=== PATIENT | female | born 1990 | race Caucasian/White ===

== ENCOUNTER → 2018-03-09 | Outpatient (CLI) | payer MEDICAID, BC ==
[2018-03-09 16:29] LABS: HCT 40.2 % (34.0-46.0); MCH 30.9 pg (25.0-35.0); MCHC 34.9 g/dL (31.0-37.0); MCV 88.7 fL (80.0-100.0); Mean Platelet Volume 6.6; Platelet Count 249 k/uL (150-450); RBC 4.53 m/uL (3.80-5.40); RDW 12.6 % (11.5-15.5); WBC 9.1 k/uL (3.8-10.6)
[2018-03-09 16:41] LABS: Glucose 63 mg/dL (74-99)
[2018-03-10 05:22] LABS: HIV 1 AB Non-Reactive (Non-Reactive); HIV AB P24 Non-Reactive (Non-Reactive); HIV P24 AG Non-Reactive (Non-Reactive)
[2018-03-10 05:23] LABS: Toxoplasma Antibody (IgG) <3.0 IU/mL (<7.2); Toxoplasma Antibody (IgM) <3.0 AU/mL (<8.0)
--- NOTE | 2018-03-10 08:23 | US ---
EXAMINATION TYPE: Transabdominal DATE OF EXAM: 10/13/17 COMPARISON: NONE CLINICAL HISTORY: Z36 Confirm Dates. EXAM PERFORMED: Transabdominal (TA) EXAM MEASUREMENTS: GESTATIONAL AGE / DATING Physician Established: Not yet established Dates by LMP: (10 weeks/5 days) EDC: 09/30/2018 Dates by First Scan: No previous. This is first scan Dates by Current Scan for: (10 weeks/3 days) EDC: 10/02/2018 MATERNAL ANATOMY Uterus: 14.3 x 8.8 x 5.9cm Right Ovary: 3.1 x 2.9 x 1.9cm Left Ovary: 3.5 x 3.1 x 2.1cm Post CDS / Adnexa: wnl Presence of free fluid: no Presence of corpus luteal cyst: not identified, but may be in right ovary Presence of subchorionic bleed: no GESTATION / SURVEY CRL: 3.5cm (10 weeks/3 days) Yolk Sac (normal less than 6mm): not seen Heart Rate: 178 bpm Rhythm: Normal IUP: single Date of LMP: UNSURE Beta HcG (if available): NA Single, live IUP, 10 weeks/3 days, EDC: 10/02/2018, HR 178bpm. IMPRESSION: 1. Single intrauterine gestation estimated at 10 weeks 3 days gestation based on the crown-rump lengt h. Cardiac activity measures 178 bpm.
== END | disposition home or self-care (01) ==
LOC: RADUSWWP 15:41
PROVIDERS: ATTEND Obstetrics & Gynecology
DX: O26.811 Pregnancy related exhaustion and fatigue, first trimester (principal); Z3A.10 10 weeks gestation of pregnancy
CPT/HCPCS: 36415; 76801; 82565; 82947; 85027; 86762; 86777; 86778; 86780; 86850; 86900; 86901; 87340; 87390

== ENCOUNTER → 2018-05-03 | Outpatient (CLI) | payer MEDICAID, BC ==
--- NOTE | 2018-05-04 11:36 | US ---
EXAMINATION TYPE: US OB anatomy transabd DATE OF EXAM: 05/03/2018 COMPARISON: NONE HISTORY: O36.62X0 Maternal care for excessive growth, LGA TECHNIQUE: Transabdominal (TA) EXAM MEASUREMENTS: GESTATIONAL AGE / DATING Physician Established: (18 weeks/4 days) EDC: 09/30/18 Dates by LMP: (18 weeks/4 days) EDC: 09/30/18 Dates by First Scan: (18 weeks/2 days) EDC: 10/02/18 Dates by Current Scan for: (18 weeks/1 days) EDC: 10/03/18 SURVEY IUP: Single PLACENTA: Posterior PREVIA: Low Lying NICOLA: 11.0 cm Normal CERVICAL LENGTH (transabdominal: norm > 3.0cm): 3.6 cm BIOMETRY PRESENTATION: Vertex LIE: Transverse lie with head maternal LT BPD: 3.8 cm 17 weeks / 5 days HC: 15.0 cm 18 weeks / 1 days AC: 12.6 cm 18 weeks / 2 days FL: 2.6 cm 18 weeks / 0 days ESTIMATED WEIGHT IN GRAMS: 221 grams ESTIMATED WEIGHT IN LBS/OZ: 0 lbs. 8 oz. WEIGHT PERCENTAGE BASED ON ESTABLISHED DATE: 18 % HC/AC: 1.19 Normal FL/AC: 21% Normal HEART RATE: 143 bpm RHYTHM: Normal ANATOMY SEEN (within normal limits): * Lateral Vent (< 1 cm) 0.6 cm * Cisterna Magna (< 1.1 cm) 0.4 cm * Nuchal Fold (< 0.6 cm) 0.4cm * Cerebellum (varies with age) 1.7 cm Choroid Plexus (bilateral) Midline Falx Cavus Septi Pellucidi Four Chamber Heart Outflow tracts: LVOT/RVOT Stomach Situs Nose / Lips Diaphragm Kidneys (bilateral) Bladder Cord Insert Three Vessel Cord Longitudinal Spine Transverse Spine Arms (bilateral) Legs (bilateral) IMPRESSION: Single live IUP with a sonographic age of 18wks/1day with NICOLE of 10/03/18, concordant with menstrual age. Amniotic fluid and a heart rate are within normal limits. Anatomy as seen above.
[2018-05-05 10:50] LABS: Alpha Fetoprotein (M.O.M) 1.13; B-HCG (M.O.M.) 0.43; Gestational Age (days) 2; Human Chorionic Gonadotropin 11.1 IU/mL; Inhibin A (M.O.M.) 0.61; Maternal Age at EDD (Yrs) 28; Smoker No; Unconjugated Estriol (M.O.M.) 0.87
== END | disposition home or self-care (01) ==
LOC: RADUSWWP 16:24
PROVIDERS: ATTEND Obstetrics & Gynecology
DX: O36.62X0 Maternal care for excessive fetal growth, second trimester, not applicable or unspecified (principal); Z3A.00 Weeks of gestation of pregnancy not specified
CPT/HCPCS: 76811; 82105; 82677; 84702; 86336

== ENCOUNTER → 2018-06-16 | Outpatient (CLI) | payer MEDICAID, BC ==
[2018-06-16 15:47] LABS: HCT 39.7 % (34.0-46.0); HGB 13.3 gm/dL (11.4-16.0); MCH 30.9 pg (25.0-35.0); MCHC 33.6 g/dL (31.0-37.0); MCV 92.1 fL (80.0-100.0); Mean Platelet Volume 6.6; Platelet Count 321 k/uL (150-450); RBC 4.31 m/uL (3.80-5.40); RDW 13.4 % (11.5-15.5); WBC 14.5 k/uL (3.8-10.6)
== END | disposition home or self-care (01) ==
LOC: LABWHC1 14:02
PROVIDERS: ATTEND Obstetrics & Gynecology
DX: Z34.82 Encounter for supervision of other normal pregnancy, second trimester (principal)
CPT/HCPCS: 36415; 82950; 85027

== ENCOUNTER → 2018-08-05 | Outpatient (CLI) | payer MEDICAID ==
--- NOTE | 2018-08-06 07:31 | US ---
EXAMINATION TYPE: US OB >= 14 wk fetus DATE OF EXAM: 08/05/2018 COMPARISON: US 05/03/2018 HISTORY: O44.43 LOW LYING PLACENTA,O36.63X0 LARGE FOR DATES TECHNIQUE: Transabdominal (TA) EXAM MEASUREMENTS: GESTATIONAL AGE / DATING Physician Established: (32 weeks/0 days) EDC: 09/30/2018 Dates by LMP: (32 weeks/0 days) EDC: 09/30/2018 Dates by First Scan: (31 weeks/5 days) EDC: 10/02/2018 Dates by Current Scan for: (32 weeks/0 days) EDC: 09/30/2018 SURVEY IUP: Single PLACENTA: Posterior PREVIA: Low Lying NICOLA: 12.2 cm Normal CERVICAL LENGTH (transabdominal: norm > 3.0cm): 3.5 cm BIOMETRY PRESENTATION: Breech LIE: Longitudinal BPD: 8.0 cm 32 weeks / 1 days HC: 29.7 cm 33 weeks / 0 days AC: 26.3 cm 30 weeks / 4 days FL: 6.2 cm 31 weeks / 6 days ESTIMATED WEIGHT IN GRAMS: 1748 grams ESTIMATED WEIGHT IN LBS/OZ: 3 lbs. 14 oz. WEIGHT PERCENTAGE BASED ON ESTABLISHED DATE: 20 % HC/AC: 1.13 Normal FL/AC: 24% Normal HEART RATE: 136 bpm RHYTHM: Normal ANATOMY SEEN (within normal limits): Stomach Situs Diaphragm Kidneys (bilateral) Bladder Three Vessel Cord ANATOMY SEEN (does not appear within normal limits): ANATOMY NOT SEEN due to crowding: * Lateral Vent (< 1 cm) cm * Cisterna Magna (< 1.1 cm) cm * Nuchal Fold (< 0.6 cm) cm * Cerebellum (varies with age) cm Choroid Plexus (bilateral) Midline Falx Cavus Septi Pellucidi Four Chamber Heart Outflow tracts: LVOT/RVOT Nose / Lips Cord Insert Longitudinal Spine Transverse Spine Arms (bilateral) Legs (bilateral) IMPRESSION: Viable IUP, measurements consistent with dates. Low lying placenta measuring 2.2 cm from cervix.
== END | disposition home or self-care (01) ==
LOC: RADUSWWP 16:14
PROVIDERS: ATTEND Obstetrics & Gynecology
DX: O44.43 Low lying placenta NOS or without hemorrhage, third trimester (principal); Z3A.32 32 weeks gestation of pregnancy
CPT/HCPCS: 76805

== ENCOUNTER → 2018-08-10 | Outpatient (CLI) | payer MEDICAID ==
--- NOTE | 2018-08-17 13:10 | ECHOF ---
Referral Reason:R00.0 Tachycardia, unspecified MEASUREMENTS -------- HEIGHT: 165.1 cm WEIGHT: 63.5 kg BP: RVIDd: 2.5 cm (< 3.3) IVSd: 0.9 cm (0.6 - 1.1) LVIDd: 4.2 cm (3.9 - 5.3) LVPWd: 0.9 cm (0.6 - 1.1) IVSs: 1.3 cm LVIDs: 2.6 cm LVPWs: 1.7 cm Ao Diam: 2.4 cm (2.0 - 3.7) AV Cusp: 2.0 cm (1.5 - 2.6) LA Diam: 2.3 cm (2.7 - 3.8) MV EXCURSION: 15.184 mm (> 18.000) MV EF SLOPE: 138 mm/s (70 - 150) EPSS: 0.6 cm MV E Daniel: 0.79 m/s MV DecT: 205 ms MV A Daniel: 0.58 m/s MV E/A Ratio: 1.36 RAP: 5.00 mmHg RVSP: 34.50 mmHg FINDINGS -------- Sinus rhythm. This was a technically good study. The left ventricular size is normal. Left ventricular wall thickness is normal. Overall left vent ricular systolic function is normal with, an EF between 55 - 60 %. The right ventricle is normal in size. The left atrium is normal in size. The right atrium is normal in size. The aortic valve is trileaflet, and appears structurally normal. No aortic stenosis or regurgitation. There is trace mitral regurgitation. Trace tricuspid regurgitation present. The right ventricular systolic pressure, as measured by Dopp ler, is 34.50mmHg. Pulmonic valve appears structurally normal. The aortic root size is normal. Normal inferior vena cava with normal inspiratory collapse consistent with estimated right atrial pre ssure of 5 mmHg. The pericardium is normal. CONCLUSIONS -------- 1. Sinus rhythm. 2. This was a technically good study. 3. The left ventricular size is normal. 4. Left ventricular wall thickness is normal. 5. Overall left ventricular systolic function is normal with, an EF between 55 - 60 %. 6. The right ventricle is normal in size. 7. The left atrium is normal in size. 8. The right atrium is normal in size. 9. The aortic valve is trileaflet, and appears structurally normal. No aortic stenosis or regurgitati on. 10. There is trace mitral regurgitation. 11. Trace tricuspid regurgitation present. 12. The right ventricular systolic pressure, as measured by Doppler, is 34.50mmHg. 13. Pulmonic valve appears structurally normal. 14. The aortic root size is normal. 15. Normal inferior vena cava with normal inspiratory collapse consistent with estimated right atrial pressure of 5 mmHg. 16. The pericardium is normal. LEGISLATIVE CORRESPONDENT: Jill Cronin RDCS
== END | disposition home or self-care (01) ==
LOC: RADECHMAIN 13:15
PROVIDERS: ATTEND Internal Medicine Cardiovascular Disease
DX: R00.0 Tachycardia, unspecified (principal)
CPT/HCPCS: 93225; 93226; 93306

== ENCOUNTER → 2018-08-27 | Outpatient (CLI) | payer MEDICAID ==
--- NOTE | 2018-08-28 11:19 | US ---
EXAMINATION TYPE: US OB >= 14 wk fetus DATE OF EXAM: 08/27/2018 COMPARISON: US 2019 CLINICAL HISTORY: O44.43 Low lying placentaLow lying placenta TECHNIQUE: Transabdominal (TA) GESTATIONAL AGE / DATING Physician Established: (35 weeks/1 days) EDC: 09/30/2018 Dates by LMP: (35 weeks/1 days) EDC: 09/30/2018 Dates by First Scan: (34 weeks/6 days) EDC: 10/02/2018 Dates by Current Scan: (34 weeks/4 days) EDC: 10/04/2018 SURVEY IUP: Single PLACENTA: Posterior PREVIA: No Previa: limited evaluation for low lying placenta, unable to visualize tip of placenta in relation to internal cervical os due to posterior shadowing from vertex head NICOLA: 12.9 cm Normal CERVICAL LENGTH (transabdominal: norm > 3.0cm): 3.9 cm BIOMETRY PRESENTATION: Vertex BPD: 8.6 cm 34 weeks / 5 days HC: 31.3 cm 35 weeks / 1 days AC: 29.4 cm 34 weeks / 3 days FL: 6.7 cm 34 weeks / 4 days ESTIMATED WEIGHT IN GRAMS: 2324 grams ESTIMATED WEIGHT IN LBS/OZ: 5 lbs. 2 oz. WEIGHT PERCENTAGE BASED ON ESTABLISHED DATES: 18% HC/AC: 1.06 Normal FL/AC: 23% Normal HEART RATE: 136 bpm RHYTHM: Normal IMPRESSION: Viable single IUP measuring 34 weeks 4 days with a heart rate of 136bpm and an estimated delivery elmira e of 10/04/2018.
== END ==
LOC: RADUSWWP 16:24
PROVIDERS: ATTEND Obstetrics & Gynecology
DX: O44.43 Low lying placenta NOS or without hemorrhage, third trimester (principal); Z3A.34 34 weeks gestation of pregnancy
CPT/HCPCS: 76805

== ENCOUNTER 2018-09-30 06:03 | Inpatient (IN) | payer MEDICAID ==
--- NOTE | 2018-09-29 19:31 | P.HPOB ---
History of Present Illness H&P Date: 09/29/18 Chief Complaint: Induction of labor This is a 28-year-old female 2 para 1 with an estimated date of confinement of 09/30/2018, estimated gestational age of 40-0/7 weeks, who presents to labor and delivery for induction of labor. She admits to good movement. She has been feeling irregular contractions. course has been essentially uncomplicated other than low-lying placenta. She was also seen by cardiology secondary to maternal tachycardia. No intervention was necessary. labs: GC/chlamydia-negative Hepatitis B surface antigen-negative on reactive Rubella-immune Syphilis antibody-negative nonreactive HIV-nonreactive Toxoplasma screen-negative Random glucose-63 Hemoglobin-14 Blood type-O- Antibody screen-negative, RhoGAM was not given due to her is Rh-. Quad screen-negative One hour Glucola-113 Group B streptococcus-negative, but history of positive GBS last Obstetrical history: . History of 1 vaginal delivery at term. Gynecologic history: No history of sexual transmitted diseases. Social history: She is . She works as an RN. Review of Systems Constitutional: Denies chills, Denies fever Eyes: denies blurred vision, denies pain Ears, nose, mouth and throat: Denies headache, Denies sore throat Cardiovascular: Denies chest pain, Denies shortness of breath Respiratory: Denies cough Gastrointestinal: Reports abdominal pain (Irregular contractions) Genitourinary: Reports pelvic pain, Reports Musculoskeletal: Reports low back pain Integumentary: Denies pruritus, Denies rash Neurological: Denies numbness, Denies weakness Psychiatric: Denies anxiety, Denies depression Past Medical History Past Medical History: No Reported History Past Surgical History: No Surgical Hx Reported Past Psychological History: No Psychological Hx Reported Past Alcohol Use History: None Reported Past Drug Use History: None Reported - Past Family History Mother Family Medical History: Hypertension Medications and Allergies Home Medications Medication Instructions Recorded Confirmed Type Vco-Bxsx-Qitfg Acid 1 cap PO DAILY 09/29/18 09/29/18 History [-U Capsule (formulary)] Allergies Allergy/AdvReac Type Severity Reaction Status Date / Time No Known Allergies Allergy Verified 09/29/18 19:27 Exam Osteopathic Statement: *. No significant issues noted on an osteopathic structural exam other than those noted in the History and Physical/Consult. HEENT: Within normal limits Heart: Regular rate and rhythm Lungs: Clear to auscultation bilaterally Abdomen: Cervix: 2.5 cm/60%/0 station heart tones: 150s Extremities: Negative Homans Assessment and Plan (1) 40 weeks gestation of Status: Acute Code(s): Z3A.40 - 40 WEEKS GESTATION OF SNOMED Code(s): 70816381 (2) Group B Streptococcus carrier, +RV culture, currently Status: Acute Code(s): O99.820 - STREPTOCOCCUS B CARRIER STATE COMPLICATING SNOMED Code(s): 6349628202565 Plan: Proceed with oxytocin induction of labor. Will give antibiotic prophylaxis secondary to history of positive group B streptococcus. Epidural anesthesia if desired. Expectant management.
[2018-09-30] MEDS ORDERED: AMPICILLIN 2,000 MG in SODIUM CHLORIDE 0.9% 100 ML IVPB STA (06:20)
[2018-09-30] MEDS ORDERED: LACTATED RINGERS 1,000 ML IV SCH (06:20)
[2018-09-30] MEDS ORDERED: CARBOPROST TROMETHAMINE 250 MCG/ML 1 ML AMP IM PRN (06:20)
[2018-09-30] MEDS ORDERED: OXYTOCIN 10 UNIT/ML 1 ML VIAL IM PRN (06:20)
[2018-09-30] MEDS ORDERED: METHYLERGONOVINE 0.2 MG/ML 1 ML AMP IM PRN (06:20)
[2018-09-30] MEDS ORDERED: LIDOCAINE 1% 20 ML VIAL (10MG/ML) FOR IV START INTRADERMA PRN (06:20)
[2018-09-30] MEDS ORDERED: LIDOCAINE 0.5% (PF) 5 MG/ML (50 ML SDV) SQ PRN (06:20)
[2018-09-30] MEDS ORDERED: TERBUTALINE 1 MG/ML VIAL SQ PRN (06:20)
[2018-09-30] MEDS ORDERED: OXYTOCIN 30 UNITS/500 ML NS 30 UNIT in SALINE 1 500ML.BAG IV SCH (06:20)
[2018-09-30 06:26] VITALS: BMI 23.1
[2018-09-30 06:31] LABS: Basophils # (A) 0.1 k/uL (0-0.2); Basophils % (A) 1 %; Eosinophils # (A) 0.1 k/uL (0-0.7); Eosinophils % (A) 1 %; HCT 37.4 % (34.0-46.0); HGB 11.8 gm/dL (11.4-16.0); Lymphocytes # (A) 2.6 k/uL (1.0-4.8); Lymphocytes % (A) 27 %; MCH 25.3 pg (25.0-35.0); MCHC 31.6 g/dL (31.0-37.0); MCV 80.1 fL (80.0-100.0); Mean Platelet Volume 7.6; Monocytes # (A) 0.6 k/uL (0-1.0); Monocytes % (A) 6 %; Neutrophils # (A) 6.1 k/uL (1.3-7.7); Neutrophils % (A) 64 %; Platelet Count 283 k/uL (150-450); Poikilocytosis Slight; RBC 4.67 m/uL (3.80-5.40); RDW 15.5 % (11.5-15.5); WBC 9.6 k/uL (3.8-10.6)
[2018-09-30] MEDS ORDERED: AMPICILLIN 1,000 MG in SODIUM CHLORIDE 0.9% 50 ML IVPB SCH (11:00)
[2018-09-30] MEDS ORDERED: ROPIVACAINE 100 MG, fentaNYL (PF) 200 MCG in SODIUM CHLORIDE 0.9% 76 ML EPIDURAL ONE (12:20)
[2018-09-30] MEDS ORDERED: OXYTOCIN 20 UNITS/1000 ML NS 1,000 ML IV SCH (14:57)
[2018-09-30] MEDS ORDERED: BENZOCAINE/MENTHOL SPRAY 1 GM/SPRAY AEROSOL TOPICAL PRN (14:57)
[2018-09-30] MEDS ORDERED: ZOLPIDEM 5 MG TAB PO PRN (14:57)
[2018-09-30] MEDS ORDERED: WITCH HAZEL 1 EACH MED..PAD TOPICAL PRN (14:57)
[2018-09-30] MEDS ORDERED: diphenhydrAMINE 50 MG CAP PO PRN (14:57)
[2018-09-30] MEDS ORDERED: diphenhydrAMINE 25 MG CAP PO PRN (14:57)
[2018-09-30] MEDS ORDERED: SIMETHICONE 80 MG CHEWABLE PO PRN (14:57)
[2018-09-30] MEDS ORDERED: diphenhydrAMINE 50 MG/ML 1 ML VIAL IVP PRN ×2 (14:57)
[2018-09-30] MEDS ORDERED: HYDROCORTISONE 2.5% RECTAL CREAM 30 GM TUBE RECTAL PRN (14:57)
[2018-09-30] MEDS ORDERED: LANOLIN CREAM 5 GM TUBE TOPICAL PRN (14:57)
--- NOTE | 2018-09-30 17:22 | P.PROBDLV ---
Vaginal Delivery Note - . Vaginal Delivery Note: The patient progressed to complete dilation after oxytocin induction of labor and artificial rupture membranes with clear fluid noted. She did receive epidural anesthesia. Once reaching complete dilation, she began pushing. Infant's head came to a crown. With one further push, the infant's head delivered across the perineum followed by the anterior shoulder. Nose and mouth were bulb suctioned at the perineum. With one further push, the remainder the infant easily delivered and was placed on mother's abdomen. Brisk cry was noted immediately. Cord was allowed to stop pulsating before clamping and cutting. A viable female is noted with scores of 9 at 1 minute and 9 at 5 minutes and weight of 6 lbs. 12 oz. Cord blood was obtained secondary to Rh- status. Placenta delivered shortly thereafter, intact, with a three-vessel cord. Uterus contracted well after oxytocin was given and uterine massage was carried out. Inspection of the perineum revealed no perineal lacerations. Estimated blood loss is approximately 150 mL. Both mother and infant are in stable condition.
[2018-09-30] MEDS: IBUPROFEN 600 MG TAB PO PRN ×2 (17:23→23:17)
[2018-09-30] MEDS: SENNOSIDES-DOCUSATE SODIUM 1 EACH TAB PO SCH (19:37)
[2018-09-30] MEDS: ACETAMINOPHEN TAB 325 MG TAB PO PRN (21:44)
[2018-10-01] MEDS: ACETAMINOPHEN TAB 325 MG TAB PO PRN ×2 (04:25→10:43)
--- NOTE | 2018-10-01 05:10 | P.DS ---
Providers Date of admission: 09/30/18 06:03 Expected date of discharge: 10/01/18 Attending physician: Marva Fonseca Primary care physician: Stated None - Discharge Diagnosis(es) (1) 40 weeks gestation of Current Visit: No Status: Acute (2) Group B Streptococcus carrier, +RV culture, currently Current Visit: No Status: Acute Hospital Course: This is a 28-year-old female 2 para 1 at 40-0/7 weeks who presented for induction of labor. She underwent oxytocin induction of labor and delivered vaginally a viable female infant with scores of 9 at 1 minute and 9 at 5 minutes and weight of 6 lbs. 12 oz. Her course has been essentially uncomplicated. Lochia is decreasing. She is working on breast- feeding. Pain is fairly well controlled. Vital signs are stable. Abdomen is soft with fundus firm and nontender. Extremities show negative Homans. Impression is status post vaginal delivery day #1. Plan is to discharge home today. Routine instructions are given. She is advised to follow-up in the office in 6 weeks for a check. She will be given a prescription for ibuprofen and a breast pump. She is advised to call the office if she has any further questions or concerns prior to her appointment time. Procedures: Oxytocin induction of labor Spontaneous vaginal delivery of a viable female infant on 09/30/2018 Patient Condition at Discharge: Stable Plan - Discharge Summary New Discharge Prescriptions: New Ibuprofen [Motrin] 600 mg PO Q6HR PRN #60 tab PRN Reason: Mild Pain Or Fever >= 100.5 Continue Nzi-Uqhy-Ompjk Acid [-U Capsule (formulary)] 1 cap PO DAILY Discharge Medication List Hwz-Icad-Rbkch Acid [-U Capsule (formulary)] 1 cap PO DAILY 09/29/18 [History] Ibuprofen [Motrin] 600 mg PO Q6HR PRN #60 tab 10/01/18 [Rx] Follow up Appointment(s)/Referral(s): Marva Fonseca DO [Doctor of Osteopathic Medicine] - 1 Week Activity/Diet/Wound Care/Special Instructions: Instructions 1. Do not begin any exercise program for 3 weeks. 2. Do not resume sexual relations for 3 weeks or longer if uncomfortable. 3. You may take tub baths or showers at any time. 4. You may use tampons if desired after 3 weeks. 5. Keep the area of episiotomy (stitches) clean and dry. 6. If you are not nursing, wear a good fitting, supportive bra during the day and limit fluid intake for at least 1 week to prevent breast engorgement. 7. Call the office, [phone], within the next week to make appointment for your 6 week checkup if it has not already been made. 8. Report any of the following occurrences to the doctor promptly: a. Heavy, excessive bleeding b. Chills, fever c. Burning or frequency of urination d. Pain or redness and breasts if nursing e. Increasing pain or swelling in episiotomy (stitches). In addition to the above instructions, the following additional should be followed: 1. No heavy lifting or straining (exercising) until after 6 week checkup. 2. Keep abdominal incision clean and dry: You may wear a dressing if more comfortable. 3. Make office appointment for 10 days after going home or as instructed by her doctor. Discharge Disposition: HOME SELF-CARE
[2018-10-01] MEDS: IBUPROFEN 600 MG TAB PO PRN ×2 (06:12→12:43)
[2018-10-01 06:56] LABS: Basophils # (A) 0.1 k/uL (0-0.2); Basophils % (A) 1 %; Eosinophils # (A) 0.2 k/uL (0-0.7); Eosinophils % (A) 1 %; HCT 34.8 % (34.0-46.0); HGB 11.3 gm/dL (11.4-16.0); Hypochromasia Slight; Lymphocytes # (A) 2.5 k/uL (1.0-4.8); Lymphocytes % (A) 18 %; MCH 26.5 pg (25.0-35.0); MCHC 32.4 g/dL (31.0-37.0); MCV 81.8 fL (80.0-100.0); Monocytes # (A) 0.7 k/uL (0-1.0); Monocytes % (A) 5 %; Neutrophils # (A) 9.9 k/uL (1.3-7.7); Neutrophils % (A) 74 %; Platelet Count 249 k/uL (150-450); RBC 4.26 m/uL (3.80-5.40); RDW 15.4 % (11.5-15.5); WBC 13.4 k/uL (3.8-10.6)
[2018-10-01] MEDS: SENNOSIDES-DOCUSATE SODIUM 1 EACH TAB PO SCH (10:20)
[2018-10-01 13:17] VITALS: BP 106/59; PULSE 75; RESP 16; TEMP 98.3
== END 2018-10-01 15:43 | disposition home or self-care (01) | DRG 807 ==
LOC: 4FBP 06:03
PROVIDERS: ADMIT Obstetrics & Gynecology; ATTEND Obstetrics & Gynecology
PROC: 10E0XZZ Delivery of Products of Conception, External Approach (ICD-10-PCS; principal; 2018-09-30)
PROC: 10907ZC Drainage of Amniotic Fluid, Therapeutic from Products of Conception, Via Natural or Artificial Opening (ICD-10-PCS; 2018-09-30)
PROC: 3E033VJ Introduction of Other Hormone into Peripheral Vein, Percutaneous Approach (ICD-10-PCS; 2018-09-30)
PROC: 00HU33Z Insertion of Infusion Device into Spinal Canal, Percutaneous Approach (ICD-10-PCS; 2018-09-30)
PROC: 3E0R3BZ Introduction of Anesthetic Agent into Spinal Canal, Percutaneous Approach (ICD-10-PCS; 2018-09-30)
DX: O99.824 Streptococcus B carrier state complicating childbirth (principal); Z37.0 Single live birth; O44.43 Low lying placenta NOS or without hemorrhage, third trimester; Z3A.40 40 weeks gestation of pregnancy; Z82.49 Family history of ischemic heart disease and other diseases of the circulatory system
CPT/HCPCS: 85025; 86850; 86900; 86901

== ENCOUNTER → 2021-01-07 | Outpatient (CLI) | payer MEDICAID ==
[2021-01-07 18:50] LABS: Basophils # (A) 0.07 X 10*3/uL (0.00-0.10); Basophils % (A) 0.7 %; Eosinophils # (A) 0.19 X 10*3/uL (0.04-0.35); Eosinophils % (A) 1.9 %; HCT 45.1 % (37.2-46.3); HGB 14.8 g/dL (12.0-15.0); Lymphocytes # (A) 2.23 X 10*3/uL (0.90-5.00); Lymphocytes % (A) 22.4 %; MCH 30.6 pg (27.0-32.0); MCHC 32.8 g/dL (32.0-37.0); MCV 93.2 fL (80.0-97.0); Mean Platelet Volume 10.5 fL (9.5-12.2); Monocytes # (A) 0.47 X 10*3/uL (0.20-1.00); Monocytes % (A) 4.7 %; Neutrophils # (A) 6.97 X 10*3/uL (1.80-7.70); Neutrophils % (A) 69.9 %; Platelet Count 345 X 10*3/uL (140-440); RBC 4.84 X 10*6/uL (4.10-5.20); RDW 11.6 % (11.5-14.5); WBC 9.97 X 10*3/uL (4.50-10.00)
[2021-01-07 19:23] LABS: African American GFR (CKD) 114.7 (60.0-200.0); Albumin 4.7 g/dL (3.80-4.90); Albumin/Globulin Ratio 2.04 (1.60-3.17); Anion Gap 7.5 mmol/L (4.00-12.00); BUN/Creat Ratio 18.75 Ratio (12.00-20.00); Calcium 9.8 mg/dL (8.7-10.3); Carbon Dioxide 27.5 mmol/L (21.6-31.8); Globulin 2.3 g/dL (1.6-3.3); Non-African American GFR(CKD) 98.9 (60.0-200.0); Potassium 3.9 mmol/L (3.5-5.5); Total Bilirubin 0.6 mg/dL (0.2-1.2)
[2021-01-07 19:30] LABS: T4, Free (Free Thyroxine) 1.2 ng/dL (0.80-1.80)
== END | disposition home or self-care (01) ==
LOC: LABWHC1 14:36
PROVIDERS: ATTEND Nurse Practitioner Gerontology
DX: R00.0 Tachycardia, unspecified (principal); R79.9 Abnormal finding of blood chemistry, unspecified
CPT/HCPCS: 36415; 80053; 82306; 82607; 84439; 84443; 85025

== ENCOUNTER → 2021-03-14 | Outpatient (CLI) | payer MEDICAID ==
--- NOTE | 2021-03-14 12:20 | USB ---
Reason for exam: clinical finding. History: Taking hormonal contraceptives beginning at age 16. Physical Findings: Nurse did not find any significant physical abnormalities on exam. US Breast LT Left complete breast ultrasound includes all four quadrants, the retroareolar region and axilla. Finding demonstrates no cystic or solid lesion seen. These results were verbally communicated with the patient and result sheet given to the patient on 03/14/21. ASSESSMENT: Negative, BI-RAD 1 RECOMMENDATION: Routine screening mammogram of both breasts at age 35. Manage patient on a clinical basis.
== END | disposition home or self-care (01) ==
LOC: RADMAMWWP 09:49
PROVIDERS: ATTEND Surgery
DX: R92.8 Other abnormal and inconclusive findings on diagnostic imaging of breast (principal); Z79.3 Long term (current) use of hormonal contraceptives

== ENCOUNTER → 2021-06-02 | Outpatient (CLI) | payer MEDICAID, OTHER | END | disposition home or self-care (01) | LOC: LABWHC1 11:08 | PROVIDERS: ATTEND Emergency Medicine | DX: Z20.822 Contact with and (suspected) exposure to COVID-19 (principal) | CPT/HCPCS: 87635 ==

== ENCOUNTER → 2021-06-03 | Outpatient (CLI) | payer MEDICAID, OTHER | END | disposition home or self-care (01) | LOC: LABWHC1 12:08 | PROVIDERS: ATTEND Emergency Medicine | DX: Z20.822 Contact with and (suspected) exposure to COVID-19 (principal) | CPT/HCPCS: 87635 ==

== ENCOUNTER → 2021-08-02 | Outpatient (CLI) | payer MEDICAID ==
--- NOTE | 2021-08-03 16:03 | US ---
EXAMINATION TYPE: Transabdominal DATE OF EXAM: 08/02/2021 4:37 PM COMPARISON: NONE CLINICAL HISTORY: Z36 confirm dates. EARLY OB EXAM PERFORMED: OBTA EXAM MEASUREMENTS: GESTATIONAL AGE / DATING Physician Established: Not yet established Dates by LMP: (10 weeks/2 days) EDC: 02/26/2022 Dates by First Scan: No previous this is first scan Dates by Current Scan for: (11 weeks/0 days) EDC: 02/21/2022 MATERNAL ANATOMY Uterus: 10.5 x 10.3 x 6.0cm Right Ovary: not seen due to enlarging UT and bowel gas Left Ovary: 2.5 x 2.4 x 2.1cm Post CDS / Adnexa: wnl Presence of free fluid: no Presence of corpus luteal cyst: yes, left 1.7cm Presence of subchorionic bleed: no GESTATION / SURVEY CRL: 4.1cm (11 weeks/0 days) MSD: wnl Yolk Sac (normal less than 6mm): 0.5cm Heart Rate: 152 bpm Rhythm: Normal IUP: Viable IUP Nuchal Translucency 10-14wks (normal less than 3mm): 1mm Age Appropriate Anatomy Limbs: yes Calvarium: yes Date of LMP: 05/22/2021 Beta HcG (if available): Not available at this time IMPRESSION: Limited survey. Single viable intrauterine corresponding to ultrasound age 11 weeks 0 days with estimated date of delivery 02/21/2022
== END | disposition home or self-care (01) ==
LOC: RADUSWWP 16:16
PROVIDERS: ATTEND Obstetrics & Gynecology
DX: Z36.0 Encounter for antenatal screening for chromosomal anomalies (principal); Z3A.11 11 weeks gestation of pregnancy
CPT/HCPCS: 76801

== ENCOUNTER → 2021-09-13 | Outpatient (CLI) | payer MEDICAID | END | disposition home or self-care (01) | LOC: LABWHC1 16:11 | PROVIDERS: ATTEND Obstetrics & Gynecology | DX: Z34.82 Encounter for supervision of other normal pregnancy, second trimester (principal) | CPT/HCPCS: 36415; 82105; 82677; 84702; 86336 ==

== ENCOUNTER → 2021-10-01 | Outpatient (CLI) | payer MEDICAID ==
--- NOTE | 2021-10-02 16:27 | US ---
EXAMINATION TYPE: US OB anatomy transabd DATE OF EXAM: 10/01/2021 COMPARISON: US HISTORY: O36.62X0 MATERNAL CARE FOR EXCESS GROWTH TECHNIQUE: Transabdominal (TA) EXAM MEASUREMENTS: GESTATIONAL AGE / DATING Physician Established: (18 weeks/6 days) EDC: 02/26/2022 Dates by LMP: (18 weeks/6 days) EDC: 02/26/2022 Dates by First Scan: (19 weeks/4 days) EDC: Dates by Current Scan for: (19 weeks/0 days) EDC: 02/25/2022 SURVEY IUP: Single PLACENTA: Posterior PREVIA: No previa NICOLA: 10.6 cm Normal CERVICAL LENGTH (transabdominal: norm > 3.0cm): 5.0 cm BIOMETRY PRESENTATION: Breech LIE: Oblique BPD: 4.5 cm 19 weeks / 3 days HC: 16.6 cm 19 weeks / 2 days AC: 13.6 cm 19 weeks / 0 days FL: 2.9 cm 18 weeks / 5 days ESTIMATED WEIGHT IN GRAMS: 267.5 grams ESTIMATED WEIGHT IN LBS/OZ: 0 lbs. 9 oz. WEIGHT PERCENTAGE BASED ON ESTABLISHED DATE: 52.9 % HC/AC: 1.22 Normal FL/AC: 21.02 Normal HEART RATE: 151 bpm RHYTHM: Normal ANATOMY SEEN (within normal limits): * Lateral Vent (< 1 cm) 0.8 cm * Cisterna Magna (< 1.1 cm) 0.3 cm * Nuchal Fold (< 0.6 cm) 0.5 cm on image #[id number] * Cerebellum (varies with age) 2.1 cm Midline Falx Cavus Septi Pellucidi Four Chamber Heart Outflow tracts: LVOT/RVOT Stomach Situs Nose / Lips Diaphragm Kidneys (bilateral) Bladder Cord Insert Three Vessel Cord Longitudinal Spine Transverse Spine Arms (bilateral) Legs (bilateral) ANATOMY SEEN (may not be within normal limits): Choroid Plexus (bilateral): bilateral choroid plexus seen but cysts are noted within on images [id number] t hrough [id number] [place] on image [id number]. Single, live IUP, (19 weeks/0 days), EDC: 02/25/2022, HR 151 bpm; bilateral choroid plexus cysts are also noted. IMPRESSION: 1. Single intrauterine gestation estimated at 19 weeks 0 days gestation based on current ultrasound m easurements. Cardiac activity 1 51 bpm. 2. Choroid plexus cysts may be present. Follow-up is recommended.
== END | disposition home or self-care (01) ==
LOC: RADUSWWP 16:35
PROVIDERS: ATTEND Obstetrics & Gynecology
DX: O36.62X0 Maternal care for excessive fetal growth, second trimester, not applicable or unspecified (principal); Z3A.19 19 weeks gestation of pregnancy
CPT/HCPCS: 76811

== ENCOUNTER → 2021-11-23 | Outpatient (CLI) | payer MEDICAID ==
[2021-11-23 22:44] LABS: HGB 11.2 g/dL (12.0-15.0); MCH 29.7 pg (27.0-32.0); MCV 92.8 fL (80.0-97.0); NRBC Per 100 WBC 0 /100 WBCS (0.0-0.0); Platelet Count 233 X 10*3/uL (140-440); RBC 3.77 X 10*6/uL (4.10-5.20); RDW 13.1 % (11.5-14.5); WBC 9.48 X 10*3/uL (4.50-10.00)
== END | disposition home or self-care (01) ==
LOC: LABWHC1 08:44
PROVIDERS: ATTEND Obstetrics & Gynecology
DX: Z34.82 Encounter for supervision of other normal pregnancy, second trimester (principal); Z3A.00 Weeks of gestation of pregnancy not specified
CPT/HCPCS: 36415; 82950; 85027; 86762

== ENCOUNTER → 2021-12-06 | Outpatient (CLI) | payer MEDICAID ==
--- NOTE | 2021-12-07 08:50 | US ---
EXAMINATION TYPE: US OB >= 14 wk fetus DATE OF EXAM: 12/06/2021 COMPARISON: 10/01/2021 CLINICAL HISTORY: O35.0XX0 MATERNAL CARE FOR (SUSPECTED) CNSL MALFOR,Z36 Follobilateral choroid cysts . TECHNIQUE: Transabdominal (TA) GESTATIONAL AGE / DATING Physician Established: (28 weeks/2 days) EDC: 02/26/2022 Dates by LMP: (28 weeks/2 days) EDC: 02/26/2022 Dates by First Scan: (11 weeks/0 days) EDC: 02/20/2022 Dates by Current Scan: (29 weeks/5 days) EDC: 02/16/2022 SURVEY IUP: Single PLACENTA: Posterior PREVIA: No Previa NICOLA: 14.03 cm Normal CERVICAL LENGTH (transabdominal: norm > 3.0cm): 4.7 cm BIOMETRY PRESENTATION: Vertex LIE: Longitudinal BPD: 7.68 cm 30 weeks / 6 days HC: 28.28 cm 31 weeks / 1 days AC: 23.78 cm 28 weeks / 1 days FL: 5.33 cm 28 weeks / 3 days ESTIMATED WEIGHT IN GRAMS: 1254 grams ESTIMATED WEIGHT IN LBS/OZ: 2 lbs. 12 oz. WEIGHT PERCENTAGE BASED ON ESTABLISHED DATES: 49% HC/AC: 1.19 cm Normal FL/AC: 22% Normal HEART RATE: 143 bpm RHYTHM: Normal Choroid cysts visualized as on previous scan. IMPRESSION: 1. Single intrauterine gestation estimated at 29 weeks 5 days gestation based on the current ultrasou nd measurements. Cardiac activity measures 143 bpm. 2. The suspected choroid plexus cysts remain present.
== END | disposition home or self-care (01) ==
LOC: RADUSWWP 16:21
PROVIDERS: ATTEND Obstetrics & Gynecology
DX: Z36.0 Encounter for antenatal screening for chromosomal anomalies (principal); O35.0XX0 Maternal care for (suspected) central nervous system malformation in fetus, not applicable or unspecified; Z3A.29 29 weeks gestation of pregnancy
CPT/HCPCS: 76805

== ENCOUNTER 2022-01-07 12:03 | Outpatient (CLI) | payer MEDICAID ==
[2022-01-07 13:16] VITALS: BP 109/69; PULSE 91; RESP 16
--- NOTE | 2022-01-07 18:12 | P.MSEPDOC ---
Presenting Problems - Arrival Data Date of Arrival on Unit: 01/07/22 Time of Arrival on Unit: 12:03 Mode of Transport: Ambulatory - Complaint OB-Reason for Admission/Chief Complaint: NST Comment: Weekly NST r/t COVID Medical History - Information : 3 Para: 2 Number of Living Children: 2 - Gestational Age Gestational Age by NICOLE (wks/days): 36 Weeks and 2 Days Review of Systems - Review of Systems Constitutional: No problems Breast: No problems ENT: No problems Cardiovascular: No problems Respiratory: No problems Gastrointestinal: No problems Genitourinary: No problems Musculoskeletal: No problems Neurological: No problems Skin: No problems Vital Signs - Pulse Right Sitting Brachial Pulse Rate: 91 Pulse Assessment Method: Automatic Cuff - Respirations Respiratory Rate: 16 Oxygen Delivery Method: Room Air - Blood Pressure Right Arm Sitting Blood Pressure: 109/69 Blood Pressure Mean: 82 Blood Pressure Source: Automatic Cuff Medical Screen Scoring - Assessment - Baby A Baseline FHR: 135 Heart Rate - NICHD Category: Category I (Normal) NST: Reactive Physician Notification - Physician Notified Physician Notified Date: 01/07/22 Physician Notified Time: 13:00 Physician: Eb Dodge - Notification Comment Comment: Pt arrives c\script for weekly NST r/t COVID, discharge home if reactive. Pt d/c home c\reactive NST. Aware to follow up weekly for scheduled NST. Maternal Triage Index - Maternal Triage Index Presenting for scheduled procedure w/no complaint: Yes - Scheduled/Requesting Priority 5 Scheduled/Requesting Priority 5: Yes Criteria Met for Priority 5: Scheduled NST Disposition - Disposition OB Disposition: Discharge to home, Written follow up instructions reviewed Discharge Date: 01/07/22 Discharge Time: 13:05 I agree with the RN Medical Screening Exam: Yes Case reviewed; plan agreed upon as documented in EMR&OBIX.: Yes Diagnosis: OTHER VIRAL DISEASES COMPLICATING , THIRD TRIMESTER
== END 2022-01-07 13:05 | disposition home or self-care (01) ==
LOC: FBPOP 12:03
PROVIDERS: ATTEND Obstetrics & Gynecology
DX: O98.513 Other viral diseases complicating pregnancy, third trimester (principal); Z3A.36 36 weeks gestation of pregnancy
CPT/HCPCS: 59025

== ENCOUNTER 2022-01-16 16:40 | Outpatient (CLI) | payer MEDICAID | END 2022-01-16 17:23 | disposition home or self-care (01) | LOC: FBPOP 16:40 | PROVIDERS: ATTEND Obstetrics & Gynecology | DX: O98.513 Other viral diseases complicating pregnancy, third trimester (principal); U07.1 COVID-19; Z3A.34 34 weeks gestation of pregnancy | CPT/HCPCS: 59025 ==

== ENCOUNTER 2022-01-23 18:00 | Outpatient (CLI) | payer MEDICAID ==
--- NOTE | 2022-01-24 06:59 | P.MSEPDOC ---
Presenting Problems - Arrival Data Date of Arrival on Unit: 01/23/22 Time of Arrival on Unit: 18:00 Mode of Transport: Ambulatory - Complaint OB-Reason for Admission/Chief Complaint: NST Comment: Patient presents to triage for weekly NST per written orders from Dr. Dodge. Medical History - Gestational Age Gestational Age by NICOLE (wks/days): 35 Weeks and 1 Days Review of Systems - Review of Systems Constitutional: No problems Breast: No problems ENT: No problems Cardiovascular: No problems Respiratory: No problems Gastrointestinal: No problems Genitourinary: No problems Musculoskeletal: No problems Neurological: No problems Skin: No problems Medical Screen Scoring - Assessment - Baby A Baseline FHR: 135 Heart Rate - NICHD Category: Category I (Normal) NST: Reactive Physician Notification - Notification Comment Comment: Patient here for weekly NST, reactive NST. Patient discharged home per Dr. Villaseñor written orders. Maternal Triage Index - Maternal Triage Index Presenting for scheduled procedure w/no complaint: Yes - Scheduled/Requesting Priority 5 Scheduled/Requesting Priority 5: Yes Criteria Met for Priority 5: Patient presents to triage for weekly NST per written orders from Dr. Dodge. GA 35.1 Disposition - Disposition OB Disposition: Triage, Discharge to home, Written follow up instructions reviewed Discharge Date: 01/23/22 Discharge Time: 18:45 I agree with the RN Medical Screening Exam: Yes Case reviewed; plan agreed upon as documented in EMR&OBIX.: Yes Diagnosis: OTHER VIRAL DISEASES COMPLICATING , THIRD TRIMESTER (Patient presents to labor and delivery for nonstress tests secondary to recent Covid infection. Nonstress test is reactive. Patient will be discharged follow-up me in the office is scheduled. )
== END 2022-01-23 18:45 | disposition home or self-care (01) ==
LOC: FBPOP 18:00
PROVIDERS: ATTEND Obstetrics & Gynecology
DX: O98.513 Other viral diseases complicating pregnancy, third trimester (principal); U07.1 COVID-19; Z3A.35 35 weeks gestation of pregnancy
CPT/HCPCS: 59025

== ENCOUNTER 2022-01-28 17:35 | Outpatient (CLI) | payer MEDICAID | END 2022-01-28 18:05 | disposition home or self-care (01) | LOC: FBPOP 17:35 | PROVIDERS: ATTEND Obstetrics & Gynecology | DX: O98.513 Other viral diseases complicating pregnancy, third trimester (principal); U07.1 COVID-19; Z3A.35 35 weeks gestation of pregnancy | CPT/HCPCS: 59025 ==

== ENCOUNTER → 2022-01-28 | Outpatient (CLI) | payer MEDICAID ==
--- NOTE | 2022-01-29 08:29 | US ---
EXAMINATION TYPE: US OB >= 14 wk fetus DATE OF EXAM: 01/28/2022 COMPARISON: 11/2021 CLINICAL HISTORY: O36.63X0 LARGE FOR DATES Large for Dates TECHNIQUE: Transabdominal (TA) GESTATIONAL AGE / DATING Physician Established: (35 weeks/5 days) EDC: 02/26/2022 Dates by LMP: (35 weeks/6 days) EDC: 02/26/2022 Dates by First Scan: (11 weeks/0 days) EDC: 02/20/2022 Dates by Current Scan: (35 weeks/6 days) EDC: 02/27/2022 Beta HCG (if available): Not available at this time SURVEY IUP: Single PLACENTA: Posterior PREVIA: No Previa NICOLA: 18.9 cm Normal CERVICAL LENGTH (transabdominal: norm > 3.0cm): 3.1 cm (Supplemental transvaginal imaging performed to verify cervical length.) BIOMETRY PRESENTATION: Vertex LIE: Longitudinal BPD: 9.20 cm 37 weeks / 3 days HC: 33.7 cm 38 weeks / 5 days AC: 32.9 cm 36 weeks / 6 days FL: 6.5 cm 33 weeks / 3 days ESTIMATED WEIGHT IN GRAMS: 2877 grams ESTIMATED WEIGHT IN LBS/OZ: 6 lbs. 5 oz. WEIGHT PERCENTAGE BASED ON ESTABLISHED DATES: 60.5% HC/AC: 1.03 Normal FL/AC: 20.0 Normal HEART RATE: 124 bpm RHYTHM: Normal Choroid cysts were not visualized on today's exam, appears wnl. IMPRESSION: Single viable intrauterine as noted above.
== END | disposition home or self-care (01) ==
LOC: RADUSWWP 16:11
PROVIDERS: ATTEND Obstetrics & Gynecology
DX: O36.63X0 Maternal care for excessive fetal growth, third trimester, not applicable or unspecified (principal); Z3A.35 35 weeks gestation of pregnancy
CPT/HCPCS: 76805

== ENCOUNTER 2022-02-06 17:40 | Outpatient (CLI) | payer MEDICAID ==
[2022-02-06 18:23] VITALS: BP 112/64; PULSE 86; RESP 16; TEMP 97.2
--- NOTE | 2022-02-06 21:43 | P.MSEPDOC ---
Presenting Problems - Arrival Data Date of Arrival on Unit: 02/06/22 Time of Arrival on Unit: 17:39 Mode of Transport: Ambulatory - Complaint OB-Reason for Admission/Chief Complaint: NST Comment: for Covid in December Medical History - Information : 3 Para: 2 Term: 2 : 0 Abortions: Spontaneous or Elective: 0 Number of Living Children: 2 - Gestational Age Gestational Age by NICOLE (wks/days): 37 Weeks and 1 Days - History Complications: Other Comment: Covid positive in December 2021 Review of Systems - Review of Systems Constitutional: No problems Breast: No problems ENT: No problems Cardiovascular: No problems Respiratory: No problems Gastrointestinal: No problems Genitourinary: No problems Musculoskeletal: No problems Neurological: No problems Skin: No problems Vital Signs - Temperature Temperature: 97.2 F Temperature Source: Temporal Artery Scan - Pulse Brachial Pulse Rate: 86 Pulse Assessment Method: Automatic Cuff - Respirations Respiratory Rate: 16 Oxygen Delivery Method: Room Air O2 Sat by Pulse Oximetry: 99 - Blood Pressure Right Arm Blood Pressure: 112/64 Blood Pressure Mean: 80 Blood Pressure Source: Automatic Cuff Medical Screen Scoring - Uterine Contractions Resting: Soft to palpation - Assessment - Baby A Baseline FHR: 120 Heart Rate - NICHD Category: Category I (Normal) NST: Reactive Physician Notification - Physician Notified Physician Notified Date: 02/06/22 Physician Notified Time: 17:59 Physician: Eb Dodge New Order Received: (discharge) - Notification Comment Comment: Scheduled NST Maternal Triage Index - Maternal Triage Index Presenting for scheduled procedure w/no complaint: Yes - Scheduled/Requesting Priority 5 Scheduled/Requesting Priority 5: No Disposition - Disposition OB Disposition: Triage, Discharge to home, Written follow up instructions reviewed Discharge Date: 02/06/22 Discharge Time: 18:00 I agree with the RN Medical Screening Exam: Yes Case reviewed; plan agreed upon as documented in EMR&OBIX.: Yes Diagnosis: OTHER VIRAL DISEASES COMPLICATING , THIRD TRIMESTER
== END 2022-02-06 18:00 | disposition home or self-care (01) ==
LOC: FBPOP 17:40
PROVIDERS: ATTEND Obstetrics & Gynecology
DX: O98.513 Other viral diseases complicating pregnancy, third trimester (principal); U07.1 COVID-19; Z3A.37 37 weeks gestation of pregnancy
CPT/HCPCS: 59025

== ENCOUNTER 2022-02-12 17:50 | Outpatient (CLI) | payer MEDICAID ==
--- NOTE | 2022-02-13 06:07 | P.MSEPDOC ---
Presenting Problems - Arrival Data Date of Arrival on Unit: 02/12/22 Time of Arrival on Unit: 17:50 Mode of Transport: Ambulatory - Complaint OB-Reason for Admission/Chief Complaint: NST Comment: pt here for nst per written order from Dr. Dodge for weekly nst after covid Medical History - Gestational Age Gestational Age by NICOLE (wks/days): 38 Weeks and 0 Days Review of Systems - Review of Systems Constitutional: No problems Breast: No problems ENT: No problems Cardiovascular: No problems Respiratory: No problems Gastrointestinal: No problems Genitourinary: No problems Musculoskeletal: No problems Neurological: No problems Skin: No problems Physician Notification - Notification Comment Comment: NST reactive, per written order may discharge pt home Maternal Triage Index - Maternal Triage Index Presenting for scheduled procedure w/no complaint: Yes - Scheduled/Requesting Priority 5 Scheduled/Requesting Priority 5: Yes Criteria Met for Priority 5: pt here for nst per written order from Dr. Dodge for weekly nst after covid Disposition - Disposition OB Disposition: Triage, Discharge to home, Written follow up instructions reviewed Discharge Date: 02/12/22 Discharge Time: 18:20 I agree with the RN Medical Screening Exam: Yes Case reviewed; plan agreed upon as documented in EMR&OBIX.: Yes Diagnosis: OTHER VIRAL DISEASES COMPLICATING , THIRD TRIMESTER
== END 2022-02-12 18:20 | disposition home or self-care (01) ==
LOC: FBPOP 17:50
PROVIDERS: ATTEND Obstetrics & Gynecology
DX: O98.513 Other viral diseases complicating pregnancy, third trimester (principal); U07.1 COVID-19; Z3A.38 38 weeks gestation of pregnancy
CPT/HCPCS: 59025

== ENCOUNTER 2022-02-15 21:28 | Inpatient (IN) | payer MEDICAID ==
[2022-02-15] MEDS ORDERED: METHYLERGONOVINE 0.2 MG/ML 1 ML AMP IM PRN (22:09)
[2022-02-15] MEDS ORDERED: LIDOCAINE 0.5% (PF) 5 MG/ML (50 ML SDV) SQ PRN (22:09)
[2022-02-15] MEDS ORDERED: CARBOPROST TROMETHAMINE 250 MCG/ML 1 ML AMP IM PRN (22:09)
[2022-02-15] MEDS ORDERED: TERBUTALINE 1 MG/ML VIAL SQ PRN (22:09)
[2022-02-15] MEDS ORDERED: OXYTOCIN 10 UNIT/ML 1 ML VIAL IM PRN (22:09)
[2022-02-15] MEDS ORDERED: LACTATED RINGERS 1,000 ML IV SCH (22:15)
[2022-02-15] MEDS ORDERED: AMPICILLIN 2,000 MG in SODIUM CHLORIDE 0.9% 100 ML IVPB ONE (22:30)
--- NOTE | 2022-02-15 22:39 | P.HPOB ---
History of Present Illness H&P Date: 02/15/22 Chief Complaint: Contractions. This patient is a pleasant 31-year-old 3 para 2 female estimated date of confinement 02/26/2022 estimated gestational age 38-5/7 weeks who presents to labor and delivery with complaints of contractions. Patient was seen in the office earlier this week was 3 cm dilated is now 5-6 cm dilated thought to be in active labor. care is complicated by choroid plexus cyst early in the which did resolve. She had normal level III ultrasound. Patient also developed Covid at 32 weeks. otherwise has been uncomplicated. Review of Systems Genitourinary: Reports Menstruation: Reports amenorrhea Past Medical History Past Medical History: No Reported History History of Any Multi-Drug Resistant Organisms: None Reported Past Surgical History: No Surgical Hx Reported Additional Past Surgical History / Comment(s): [place] tooth extraction Past Anesthesia/Blood Transfusion Reactions: No Reported Reaction Smoking Status: Never smoker Past Alcohol Use History: None Reported Past Drug Use History: None Reported - Past Family History Mother Family Medical History: Hypertension, Thyroid Disorder Additional Family Medical History / Comment(s): Hypothyroidism, Depression Father Family Medical History: Cancer, Diabetes Mellitus Additional Family Medical History / Comment(s): Non-Hodgkins Lymphoma Medications and Allergies Home Medications Medication Instructions Recorded Confirmed Type Qee-Caet-Pyhfl Acid 1 cap PO DAILY 09/29/18 02/15/22 History [-U Capsule (formulary)] Sertraline [Zoloft] 50 mg PO DAILY 01/07/22 02/15/22 History Aspirin 81 mg PO DAILY 01/16/22 02/15/22 History Omeprazole [PriLOSEC] 20 mg PO AC-BRKFST 02/12/22 02/15/22 History Allergies Allergy/AdvReac Type Severity Reaction Status Date / Time No Known Allergies Allergy Verified 02/15/22 21:35 Exam Intake and Output 02/15/22 02/15/22 02/15/22 06:59 14:59 22:59 Other: Weight 68.946 kg - OBG Physical Exam Abdomen: bowel sounds normal, no diffuse tenderness, no bruit present, no guarding noted, no hepatomegaly, no splenomegaly, no mass Vulva: both: normal Vagina: normal moisture, no discharge Cervix: no lesion (5-6 cm dilated 80% effaced -2 station), no discharge Uterus: enlarged (Fundal height consistent with dates) Results blood work shows she is O-, hepatitis B nonreactive, RPR is nonreactive, HIV is nonreactive, rubella was immune, Glucola was normal, quad screen was negative, ultrasounds as above. Patient negative group B strep however has a history of positive with a previous . Patient does not receive RhoGAM because the father the baby her has Rh- as well. Assessment and Plan Assessment: This is a pleasant 31-year-old 3 para 2 female 38-5/7 weeks gestation admitted to labor and delivery active labor. Due to history of positive strep With previous we'll get an antibiotic prophylaxis. At this point we anticipate vaginal delivery. (1) 38 weeks gestation of Current Visit: Yes Status: Acute Code(s): Z3A.38 - 38 WEEKS GESTATION OF SNOMED Code(s): 80121665 (2) Normal labor Current Visit: Yes Status: Acute Code(s): O80 - ENCOUNTER FOR FULL-TERM UNCOMPLICATED DELIVERY; Z37.9 - OUTCOME OF DELIVERY, UNSPECIFIED SNOMED Code(s): 12965397 (3) Rh negative status during Current Visit: Yes Status: Acute Code(s): O26.899 - OTH RELATED CONDITIONS, UNSPECIFIED TRIMESTER; Z67.91 - UNSPECIFIED BLOOD TYPE, RH NEGATIVE SNOMED Code(s): 944130043
[2022-02-15 23:03] LABS: Basophils % (A) 1 %; Eosinophils # (A) 0.1 k/uL (0-0.7); Eosinophils % (A) 1 %; HCT 34.4 % (34.0-46.0); HGB 11.3 gm/dL (11.4-16.0); Hypochromasia Moderate; Lymphocytes % (A) 22 %; MCHC 32.9 g/dL (31.0-37.0); Mean Platelet Volume 8.8; Monocytes # (A) 0.5 k/uL (0-1.0); Monocytes % (A) 6 %; Neutrophils # (A) 6.2 k/uL (1.3-7.7); Neutrophils % (A) 69 %; Platelet Count 301 k/uL (150-450); Poikilocytosis Slight; RDW 15.5 % (11.5-15.5); WBC 8.9 k/uL (3.8-10.6)
[2022-02-15] MEDS ORDERED: SODIUM CHLORIDE 0.9% 100 ML BAG ONE (23:05)
[2022-02-15] MEDS ORDERED: fentaNYL (PF) 50 MCG/ML 5 ML AMP ONE (23:05)
[2022-02-15] MEDS ORDERED: ROPIVACAINE 5MG/ML 20ML VIAL ONE (23:05)
[2022-02-16] MEDS ORDERED: diphenhydrAMINE 50 MG/ML 1 ML VIAL IVP PRN (01:48)
[2022-02-16] MEDS ORDERED: bisacodyL 10 MG SUPP RECTAL PRN (01:48)
[2022-02-16] MEDS ORDERED: BENZOCAINE/MENTHOL SPRAY 1 GM/SPRAY AEROSOL TOPICAL PRN (01:48)
[2022-02-16] MEDS ORDERED: diphenhydrAMINE 25 MG CAP PO PRN (01:48)
[2022-02-16] MEDS ORDERED: SIMETHICONE 80 MG CHEWABLE PO PRN (01:48)
[2022-02-16] MEDS ORDERED: ZOLPIDEM 5 MG TAB PO PRN (01:48)
[2022-02-16] MEDS ORDERED: HYDROCORTISONE 2.5% RECTAL CREAM 30 GM TUBE RECTAL PRN (01:48)
[2022-02-16] MEDS ORDERED: LANOLIN CREAM 5 GM TUBE TOPICAL PRN (01:48)
--- NOTE | 2022-02-16 01:54 | P.PROBDLV ---
Vaginal Delivery Note - . Vaginal Delivery Note: Normal spontaneous vaginal delivery viable male infant Apgars 9 and 9 delivery time is 0128 hours. Please see dictated H&P for intimate details of this patient's admission. Brief summary this pleasant 31-year-old 3 para 2 female estimated gestational age 38-3/7 weeks who presents to labor and delivery with complaints of contractions. On admission patient is 6 cm dilated. Patient is artificial rupture membranes for mild meconium-stained fluid. Patient does get an epidural for pain control with good relief. Labor progresses normally and she gets to complete. With one push she pushes the head to the perineum and the posterior perineum was supported. Controlled delivery of the 's head over the intact perineum. Mouth and nares are bulb suctioned. 's head is straight occiput anterior presentation. There is a loop of cord presenting with the head. With very little effort and gentle downward traction we deliver the anterior and posterior shoulder and rest this infant's body. This is a vigorous viable male Apgars are 9 and 9 delivery time is 0128 hours. has spontaneous respirations and good cry and grossly appears normal. After delivery of the the umbilical cord is allowed to quit pulsating is then doubly clamped and cut. Placenta spontaneously delivered intact. Estimated blood loss is about 100 mL. There are no lacerations and no repairs required. All counts are correct 3. There are no complications. Infant and mother stable delivery room.
[2022-02-16] MEDS ORDERED: OXYTOCIN 30 UNITS/500 ML NS 30 UNIT in SALINE 1 500ML.BAG IV SCH (02:00)
[2022-02-16] MEDS: IBUPROFEN 600 MG TAB PO PRN ×4 (02:54→22:15)
[2022-02-16] MEDS: ACETAMINOPHEN TAB 325 MG TAB PO PRN ×3 (06:17→17:59)
[2022-02-16] MEDS: SENNOSIDES-DOCUSATE SODIUM 1 EACH TAB PO SCH ×2 (07:49→20:01)
--- NOTE | 2022-02-16 07:49 | P.MSEPDOC ---
Presenting Problems - Arrival Data Date of Arrival on Unit: 02/15/22 Time of Arrival on Unit: 22:30 Mode of Transport: Ambulatory - Complaint OB-Reason for Admission/Chief Complaint: Possible Onset of Labor Comment: Patient arrives to triage with complaints of regular contractions, every. five minutes since 630pm. Patient states theyre strong approximately a 6/10 pain. Patient denies leaking fluid. Medical History - Information : 3 Para: 2 Term: 2 : 0 Abortions: Spontaneous or Elective: 0 Number of Living Children: 2 - Gestational Age Gestational Age by NICOLE (wks/days): 38 Weeks and 4 Days Review of Systems - Review of Systems Constitutional: No problems Breast: No problems ENT: No problems Cardiovascular: No problems Respiratory: No problems Gastrointestinal: No problems Genitourinary: No problems Musculoskeletal: No problems Neurological: No problems Skin: No problems Vital Signs - Temperature Temperature: 98.1 F Temperature Source: Temporal Artery Scan - Pulse Right Brachial Pulse Rate: 68 Pulse Assessment Method: Automatic Cuff - Respirations Respiratory Rate: 16 Oxygen Delivery Method: Room Air - Blood Pressure Right Arm Blood Pressure: 119/69 Blood Pressure Mean: 85 Blood Pressure Source: Automatic Cuff Medical Screen Scoring - Cervical Exam Dilation (cm): 6 Effacement (%): 80 Station: -2 Membranes: Intact - Uterine Contractions Frequency From (mins): 2 Frequency To (mins): 4 Duration From (seconds): 60 Duration To (seconds): 90 Intensity: Strong Resting: Soft to palpation - Assessment - Baby A Baseline FHR: 120 Heart Rate - NICHD Category: Category I (Normal) NST: Reactive Physician Notification - Physician Notified Physician Notified Date: 02/16/22 Physician Notified Time: 21:54 Physician: bE Dodge New Order Received: Yes - Notification Comment Comment: RN reported to Dr. Dodge that patient arrives in triage with c/o contractions. every five minutes since 18:30. Patient is rating pain at 6/10. This is patients third. , no complications, and would like an epidural. Patients cervical exam is. 5/60/-2[address] Dr. Dodge states to admit patient for labor, start antibiotics due to. history, and he will be in shortly. Patient updated on plan of care. Maternal Triage Index - Maternal Triage Index Presenting for scheduled procedure w/no complaint: No - Stat/Priority 1 Stat Priority 1: No - Urgent/Priority 2 Urgent Priority 2: No - Prompt/Priority 3 Prompt Priority 3: No - Non-Urgent/Priority 4 Non-Urgent Priority 4: Yes Criteria Met for Priority 4: >37 weeks with early labor signs Disposition - Disposition OB Disposition: Admit Transferred to:: [address] I agree with the RN Medical Screening Exam: Yes Case reviewed; plan agreed upon as documented in EMR&OBIX.: Yes Diagnosis: ENCOUNTER FOR FULL-TERM UNCOMPLICATED DELIVERY
[2022-02-16 16:39] VITALS: RESP 16
[2022-02-17] MEDS: ACETAMINOPHEN TAB 325 MG TAB PO PRN ×2 (01:07→07:16)
[2022-02-17] MEDS: AMPICILLIN 1,000 MG in SODIUM CHLORIDE 0.9% 50 ML IVPB SCH (01:54)
[2022-02-17] MEDS: IBUPROFEN 600 MG TAB PO PRN ×2 (04:35→10:23)
--- NOTE | 2022-02-17 06:28 | P.PNOBGVD ---
Subjective - Subjective Patient reports: Reports appetite normal, Reports voiding normally, Reports pain well controlled, Reports ambulating normally : doing well Objective - Latest Vital Signs Latest vital signs: Vital Signs Temp Pulse Resp BP Pulse Ox 02/17/22 00:00 97.5 F L 74 16 112/68 99 02/16/22 20:00 97.8 F 53 L 16 132/71 100 02/16/22 16:37 98.2 F 62 16 115/65 98 02/16/22 12:00 97.9 F 66 18 123/81 99 02/16/22 08:00 97.4 F L 60 18 132/75 99 02/16/22 07:49 98.1 F 68 16 119/69 Intake and Output 02/16/22 02/16/22 02/17/22 14:59 22:59 06:59 Other: # Voids 1 1 2 - Exam Lungs: bilateral: normal Chest: Normal S1, Normal S2 Extremities: Present: normal Abdomen: Present: normal appearance, soft Uterus: Present: normal, firm Assessment and Plan Assessment: day #1. Patient is resting without complaints and wishes to go home. Vital signs are stable she is afebrile. Uterus is firm nontender and she is having normal lochia. My impression this is a normal course. Plan is to continue routine care and discharge home today (1) 38 weeks gestation of Current Visit: Yes Status: Acute Code(s): Z3A.38 - 38 WEEKS GESTATION OF SNOMED Code(s): 35076212 (2) Normal labor Current Visit: Yes Status: Acute Code(s): O80 - ENCOUNTER FOR FULL-TERM UNCOMPLICATED DELIVERY; Z37.9 - OUTCOME OF DELIVERY, UNSPECIFIED SNOMED Code(s): 33952021 (3) Rh negative status during Current Visit: Yes Status: Acute Code(s): O26.899 - OTH RELATED CONDITIONS, UNSPECIFIED TRIMESTER; Z67.91 - UNSPECIFIED BLOOD TYPE, RH NEGATIVE SNOMED Code(s): 899622595
[2022-02-17 06:30] LABS: Basophils # (A) 0.1 k/uL (0-0.2); Basophils % (A) 1 %; Eosinophils # (A) 0.2 k/uL (0-0.7); Eosinophils % (A) 2 %; HCT 33.1 % (34.0-46.0); HGB 10.8 gm/dL (11.4-16.0); Hypochromasia Moderate; Lymphocytes # (A) 2.5 k/uL (1.0-4.8); Lymphocytes % (A) 26 %; MCHC 32.6 g/dL (31.0-37.0); MCV 82.9 fL (80.0-100.0); Mean Platelet Volume 8.2; Monocytes # (A) 0.7 k/uL (0-1.0); Monocytes % (A) 7 %; Neutrophils # (A) 6.1 k/uL (1.3-7.7); Neutrophils % (A) 63 %; Platelet Count 252 k/uL (150-450); Poikilocytosis Slight; RDW 15.3 % (11.5-15.5); WBC 9.7 k/uL (3.8-10.6)
--- NOTE | 2022-02-17 06:31 | P.DS ---
Providers Date of admission: 02/15/22 21:57 Expected date of discharge: 02/17/22 Attending physician: Eb Dodge Primary care physician: Stated None - Discharge Diagnosis(es) (1) 38 weeks gestation of Current Visit: Yes Status: Acute (2) Normal labor Current Visit: Yes Status: Acute (3) Rh negative status during Current Visit: Yes Status: Acute Hospital Course: Please see dictated H&P for intimate details of this patient's admission. Brief summary this pleasant 31-year-old 3 para 2 female 38-3/7 weeks gestation admitted to labor and delivery in active labor. Patient quickly goes on have a vaginal delivery viable male infant. Please see dictated delivery note. day #1 patient is without complaints wishes to go home. Patient's felt be stable for discharge home follow up with me in 6 weeks. Procedures: Normal spontaneous vaginal delivery Patient Condition at Discharge: Good Plan - Discharge Summary New Discharge Prescriptions: New Ibuprofen [Motrin] 600 mg PO Q6HR PRN #30 tab PRN Reason: Mild Pain (Scale 1 To 3) No Action Sja-Tmbc-Iymga Acid [-U Capsule (formulary)] 1 cap PO DAILY Aspirin 81 mg PO DAILY Omeprazole [PriLOSEC] 20 mg PO AC-BRKFST Sertraline [Zoloft] 50 mg PO DAILY Discharge Medication List Hkx-Xaim-Ibqvi Acid [-U Capsule (formulary)] 1 cap PO DAILY 09/29/18 [History] Sertraline [Zoloft] 50 mg PO DAILY 01/07/22 [History] Aspirin 81 mg PO DAILY 01/16/22 [History] Omeprazole [PriLOSEC] 20 mg PO AC-BRKFST 02/12/22 [History] Ibuprofen [Motrin] 600 mg PO Q6HR PRN #30 tab 02/17/22 [Rx] Follow up Appointment(s)/Referral(s): Eb Dodge MD [STAFF PHYSICIAN] - 6 Weeks Patient Instructions/Handouts: Vaginal Delivery (DC) Activity/Diet/Wound Care/Special Instructions: No intercourse or anything per vagina for 6 weeks. Please call if any fever, chills, excessive vaginal bleeding, and/or abdominal pain Discharge Disposition: HOME SELF-CARE
[2022-02-17] MEDS: SENNOSIDES-DOCUSATE SODIUM 1 EACH TAB PO SCH (09:36)
[2022-02-17 09:42] VITALS: BP 121/75; PULSE 51; TEMP 97.4
== END 2022-02-17 10:45 | disposition home or self-care (01) | DRG 806 ==
LOC: FBPOP 21:28 → 4FBP 21:57
PROVIDERS: ADMIT Obstetrics & Gynecology; ATTEND Obstetrics & Gynecology
PROC: 10E0XZZ Delivery of Products of Conception, External Approach (ICD-10-PCS; principal; 2022-02-16)
PROC: 10907ZC Drainage of Amniotic Fluid, Therapeutic from Products of Conception, Via Natural or Artificial Opening (ICD-10-PCS; 2022-02-16)
PROC: 4A0HXCZ Measurement of Products of Conception, Cardiac Rate, External Approach (ICD-10-PCS; 2022-02-16)
DX: O69.89X0 Labor and delivery complicated by other cord complications, not applicable or unspecified (principal); O99.354 Diseases of the nervous system complicating childbirth; Z37.0 Single live birth; O62.3 Precipitate labor; O77.0 Labor and delivery complicated by meconium in amniotic fluid; O26.893 Other specified pregnancy related conditions, third trimester; Z3A.38 38 weeks gestation of pregnancy; Z67.91 Unspecified blood type, Rh negative; Z79.82 Long term (current) use of aspirin; Z79.899 Other long term (current) drug therapy
CPT/HCPCS: 59025; 85025; 86850; 86900; 86901; 99213

== ENCOUNTER → 2022-05-10 | Outpatient (CLI) | payer MEDICAID ==
--- NOTE | 2022-05-10 09:49 | XR ---
EXAMINATION TYPE: XR Hip Limited LT DATE OF EXAM: 05/10/2022 COMPARISON: None HISTORY: Bump on lateral aspect of left hip TECHNIQUE: Single AP left hip FINDINGS: Femoral head articulates with the acetabulum. Joint space is preserved. No acute fracture o r dislocation is evident. Soft tissues appear unremarkable. No radiopaque foreign bodies are evident. Follow up exams can be performed as clinically indicated. IMPRESSION: 1. No acute osseous abnormality left hip. 2. No suspicious abnormality to account for clinical finding lateral left hip.
== END | disposition home or self-care (01) ==
LOC: RADXRMAIN 09:11
PROVIDERS: ATTEND Nurse Practitioner Family
DX: M25.559 Pain in unspecified hip (principal)
CPT/HCPCS: 73501

== ENCOUNTER → 2022-07-01 | Outpatient (CLI) | payer MEDICAID ==
--- NOTE | 2022-07-01 21:31 | MR ---
EXAMINATION TYPE: MR hip LT wo/w con DATE OF EXAM: 07/01/2022 COMPARISON: Left hip x-ray May 10, 2021 HISTORY: L hip mass CONTRAST: Standard multiplanar, multisequence MRI departmental protocol images were obtained without contrast a nd with 5.5 mL intravenous Gadavist gadolinium contrast. FINDINGS: Vitamin E marker is placed at level of palpable abnormality anterior lateral left hip regio n axial image 16 and sagittal image 5. No suspicious skin thickening at this level. There is tiny sub cutaneous vessel at this level noted. Adjacent muscle bulk is maintained and symmetric to opposite ri ght side. No concerning solid or cystic mass or suspicious fluid collection is seen at this level. Bone marrow signal intensity is maintained in the pelvis and bilateral hips. No suspicious increased T2 signal or edema. No serpiginous the diminished T1 signal to suggest avascular necrosis. No joint e ffusions present bilaterally. No suspicious fluid signal in the greater trochanter region bilaterally . Labrum appears grossly intact given limitation of nonarthrogram study. No abnormal enhancement is s een. No suspicious small or large bowel dilatation. Anteverted uterus is seen. Urinary bladder appears wit hin normal limits. Trace free fluid in the pelvis axial image 26 is favored physiologic. There is no groin hernia or adenopathy noted. IMPRESSION: No suspicious solid or cystic mass or fluid collection present to correlate with patient' s history of palpable mass in the left hip region.
== END | disposition home or self-care (01) ==
LOC: RADMRIMAIN 12:18
PROVIDERS: ATTEND Surgery
DX: R22.42 Localized swelling, mass and lump, left lower limb (principal)